=== PATIENT | female | born 1940 | race Caucasian/White ===

== ENCOUNTER 2018-05-15 05:10 | Inpatient (IN) ==
[2018-05-15] MEDS ORDERED: SODIUM CHLORIDE 0.9% 1,000 ML IV STA (05:17)
[2018-05-15] MEDS ORDERED: METOCLOPRAMIDE 10 MG/2 ML VIAL IV STA (05:22)
[2018-05-15] MEDS ORDERED: diphenhydrAMINE 50 MG/1 ML VIAL IV STA (05:22)
[2018-05-15 05:49] LABS: Basophils # 0.1 10*3/uL (0.0-0.2); Basophils % 0.3 % (0.0-0.8); Eosinophils % 0.1 % (0.00-10.9); Hematocrit 44.4 VOL% (35.7-47.0); Hemoglobin 14.3 GM/DL (12.0-16.0); Immature Granulocytes % 0.4 %; Immature Granulocytes Absolute 0.07 #; Lymphocytes # 1.5 10*3/uL (1.4-4.0); Lymphocytes % 8.3 % (21.3-54.2); Mean Corpuscular HGB Conc 32.2 GM/DL (32-36); Mean Corpuscular Hemoglobin 29 PG (27-34); Mean Corpuscular Volume 89.2 FL (87-102); Mean Platelet Volume 10.3 FL (9.6-12.0); Monocytes # 0.7 10*3/uL (0.11-0.8); Neutrophils # 15.9 10*3/uL (1.4-7.4); Neutrophils % 86.9 % (38.7-73.9); Platelet Count 228 T/CUMM (130-400); Red Blood Count 4.98 MC/CUMM (3.8-5.5); Red Cell Distribution Width 14.6 % (9.3-17.3); White Blood Count 18.3 T/CUMM (4-12)
[2018-05-15] MEDS ORDERED: PROMETHAZINE INJ 25 MG in SODIUM CHLORIDE 0.9% 50 ML IV STA (06:08)
[2018-05-15] MEDS ORDERED: PROMETHAZINE 25 MG/1 ML VIAL ONE (06:10)
[2018-05-15 06:19] LABS: Albumin 3.6 G/DL (3.4-5.0); Bilirubin,Total 0.4 MG/DL (0.2-1.0); Osmolality,Calculated 301.4 MOS/KG (273-304); Potassium 3.6 MMOL/L (3.5-5.1); Total Protein 7.1 G/DL (6.4-8.3)
[2018-05-15 09:06] LABS: Amorphous Crystals,Urine Occasional /HPF (Few); Apearance,Urine CLEAR (Clear); Bilirubin,Urine Negative (Negative); Blood, Urine Small mg/dL (Negative); Glucose,Urine (UA) >=500 mg/dL (Negative); Ketones,Urine 20 mg/dL (Negative); Mucus,Urine Occasional /LPF (Occasional); Nitrite,Urine Negative (Negative); Protein,Urine 30 MG/DL; RBC,Urine 2 /HPF (0-4); Squamous Epithelial Cell,Urine Occasional /HPF (0-10); Urine Color Yellow (Yellow); Urine Specific Gravity 1.023 (1.001-1.035); Urine Urobilinogen < 2.0 EU/DL (0.2-1.0); WBC,Urine 1 /HPF (0-6)
[2018-05-15] MEDS ORDERED: BENZOCAINE/BUTAMBEN/TETRACAINE SPRAY 20 GM CAN TOP ONE (09:55)
[2018-05-15] MEDS ORDERED: LACTATED RINGERS 1,000 ML IV ONE (10:05)
[2018-05-15] MEDS ORDERED: cefOXitin 2,000 MG in SYRINGE 1 EACH IV STA (10:05)
[2018-05-15] MEDS ORDERED: Aspirin/Sod Bicarb/Citric Acid [Alka-Seltzer Original Tab Eff] 1 PO PRN (10:53)
[2018-05-15] MEDS ORDERED: ONDANSETRON 4 MG/2 ML VIAL IV PRN (10:53)
[2018-05-15] MEDS ORDERED: PROMETHAZINE 25 MG/1 ML VIAL IM PRN (10:53)
[2018-05-15] MEDS ORDERED: ACETAMINOPHEN 325 MG TABLET PO PRN (10:53)
[2018-05-15] MEDS ORDERED: BISMUTH SUBSALICYLATE 30 ML/524 MG 240 ML/BOTTLE PO PRN (10:53)
[2018-05-15] MEDS: LACTATED RINGERS 1,000 ML IV SCH (15:17)
[2018-05-15] MEDS: cefOXitin 2,000 MG in SYRINGE 1 EACH IV SCH (17:34)
[2018-05-15] MEDS: ZOLPIDEM 5 MG TABLET PO SCH (21:54)
[2018-05-15] MEDS: ENOXAPARIN 40 MG/0.4 ML SYRINGE SUBCUT SCH (21:54)
[2018-05-16] MEDS: LACTATED RINGERS 1,000 ML IV SCH ×2 (00:44→10:15)
[2018-05-16] MEDS: cefOXitin 2,000 MG in SYRINGE 1 EACH IV SCH ×3 (02:44→18:10)
[2018-05-16 03:34] LABS: Basophils % 0.1 % (0.0-0.8); Eosinophils % 0.1 % (0.00-10.9); Hematocrit 40.2 VOL% (35.7-47.0); Hemoglobin 12.5 GM/DL (12.0-16.0); Immature Granulocytes % 0.5 %; Immature Granulocytes Absolute 0.08 #; Lymphocytes # 1.9 10*3/uL (1.4-4.0); Lymphocytes % 12.5 % (21.3-54.2); Mean Corpuscular HGB Conc 31.1 GM/DL (32-36); Mean Corpuscular Hemoglobin 28 PG (27-34); Mean Corpuscular Volume 91.4 FL (87-102); Mean Platelet Volume 11.3 FL (9.6-12.0); Monocytes # 1.1 10*3/uL (0.11-0.8); Monocytes % 7.4 % (1.7-12.7); Neutrophils # 12.2 10*3/uL (1.4-7.4); Neutrophils % 79.4 % (38.7-73.9); Platelet Count 185 T/CUMM (130-400); White Blood Count 15.3 T/CUMM (4-12)
[2018-05-16 04:05] LABS: Calcium 8.6 MG/DL (8.5-10.1); Potassium 3.5 MMOL/L (3.5-5.1)
[2018-05-16] MEDS ORDERED: ASPIRIN EC 81 MG TABLET PO SCH (09:00)
[2018-05-16] MEDS ORDERED: ROSUVASTATIN 20 MG TABLET PO SCH (09:00)
[2018-05-16] MEDS: METOPROLOL SUCCINATE XL 50 MG TABLET PO SCH (09:08)
[2018-05-16] MEDS: DEXT 5% NACL 0.2% KCL 20 MEQ 20 MEQ/1,000 ML BAG IV SCH ×2 (09:08→19:39)
[2018-05-16] MEDS: PANTOPRAZOLE 40 MG VIAL IV SCH (09:10)
[2018-05-16] MEDS: ASPIRIN EC 81 MG TABLET PO SCH (20:58)
[2018-05-16] MEDS: ZOLPIDEM 5 MG TABLET PO SCH (20:58)
[2018-05-16] MEDS: ROSUVASTATIN 20 MG TABLET PO SCH (20:58)
[2018-05-16] MEDS: ENOXAPARIN 40 MG/0.4 ML SYRINGE SUBCUT SCH (21:05)
[2018-05-17] MEDS: cefOXitin 2,000 MG in SYRINGE 1 EACH IV SCH ×3 (02:40→18:30)
[2018-05-17] MEDS: DEXT 5% NACL 0.2% KCL 20 MEQ 20 MEQ/1,000 ML BAG IV SCH ×4 (02:44→23:51)
[2018-05-17 06:19] LABS: Basophils # 0.1 10*3/uL (0.0-0.2); Basophils % 0.5 % (0.0-0.8); Eosinophils # 0.1 10*3/uL (0.0-0.87); Hematocrit 44.8 VOL% (35.7-47.0); Immature Granulocytes % 0.3 %; Immature Granulocytes Absolute 0.03 #; Lymphocytes # 2.7 10*3/uL (1.4-4.0); Mean Corpuscular HGB Conc 31.3 GM/DL (32-36); Mean Corpuscular Hemoglobin 29 PG (27-34); Mean Corpuscular Volume 91.2 FL (87-102); Mean Platelet Volume 11.4 FL (9.6-12.0); Monocytes # 0.9 10*3/uL (0.11-0.8); Neutrophils # 7.8 10*3/uL (1.4-7.4); Neutrophils % 67.2 % (38.7-73.9); Platelet Count 151 T/CUMM (130-400); Red Blood Count 4.91 MC/CUMM (3.8-5.5); Red Cell Distribution Width 15.1 % (9.3-17.3); White Blood Count 11.7 T/CUMM (4-12)
[2018-05-17 06:47] LABS: Calcium 8.3 MG/DL (8.5-10.1); Osmolality,Calculated 294.1 MOS/KG (273-304); Potassium 3.2 MMOL/L (3.5-5.1)
[2018-05-17] MEDS ORDERED: DIAZEPAM 5 MG TABLET PO ONE (07:36)
[2018-05-17] MEDS ORDERED: POTASSIUM CHLORIDE RIDER 10 MEQ in PREMIX 1 EACH IV PRN (09:04)
[2018-05-17] MEDS: PANTOPRAZOLE 40 MG VIAL IV SCH (09:59)
[2018-05-17] MEDS: METOPROLOL SUCCINATE XL 50 MG TABLET PO SCH (10:02)
[2018-05-17] MEDS ORDERED: TISSUE ADHESIVE 1 EACH APPLICATOR TOP ONE (13:58)
[2018-05-17] MEDS ORDERED: ONDANSETRON 4 MG/2 ML VIAL ONE ×2 (17:07→17:11)
[2018-05-17] MEDS ORDERED: PROPOFOL 200 MG/20 ML VIAL IV ONE (17:10)
[2018-05-17] MEDS ORDERED: fentaNYL 100 MCG/2 ML VIAL ONE (17:11)
[2018-05-17] MEDS ORDERED: DESFLURANE 1 UNIT/15 MINUTE INH ONE (17:11)
[2018-05-17] MEDS ORDERED: ETOMIDATE 40 MG/20 ML VIAL IV ONE (17:11)
[2018-05-17] MEDS ORDERED: PHENYLEPHRINE 10 MG/1 ML VIAL IV ONE (17:11)
[2018-05-17] MEDS ORDERED: LACTATED RINGERS 2,000 ML IV ONE (17:12)
[2018-05-17] MEDS ORDERED: NEOSTIGMINE 10 MG/10 ML VIAL ONE (17:12)
[2018-05-17] MEDS ORDERED: GLYCOPYRROLATE 0.4 MG/2 ML VIAL ONE (17:12)
[2018-05-17] MEDS ORDERED: SUCCINYLCHOLINE 200 MG/10 ML VIAL ONE (17:12)
[2018-05-17] MEDS ORDERED: ROCURONIUM 100 MG/10 ML VIAL IV ONE (17:12)
[2018-05-17] MEDS ORDERED: ACETAMINOPHEN 1,000 MG/100 ML VIAL IV ONE (17:12)
[2018-05-17] MEDS ORDERED: SODIUM CHLORIDE 0.9% 250 ML IV ONE (17:12)
[2018-05-17] MEDS ORDERED: PHENYLEPHRINE 1 MG/10 ML SYRINGE IV ONE (17:12)
[2018-05-17] MEDS ORDERED: MEPERIDINE 25 MG/1 ML VIAL IV PRN (17:21)
[2018-05-17] MEDS ORDERED: MEPERIDINE 25 MG/1 ML VIAL ONE (17:23)
[2018-05-17] MEDS: HYDROmorphone 2 MG/1 ML VIAL IV PRN (19:24)
[2018-05-17] MEDS: ZALEPLON 5 MG CAPSULE PO SCH (21:50)
[2018-05-17] MEDS: ENOXAPARIN 40 MG/0.4 ML SYRINGE SUBCUT SCH (21:51)
[2018-05-17] MEDS: ASPIRIN EC 81 MG TABLET PO SCH (21:51)
[2018-05-17] MEDS: ROSUVASTATIN 20 MG TABLET PO SCH (21:51)
[2018-05-18] MEDS ORDERED: LIDOCAINE 1%/EPI INJ 20 ML VIAL ONE ×2 (03:02→03:24)
[2018-05-18] MEDS ORDERED: PROPOFOL 200 MG/20 ML VIAL IV ONE (03:56)
[2018-05-18] MEDS ORDERED: PHENYLEPHRINE 1 MG/10 ML SYRINGE IV ONE (03:57)
[2018-05-18] MEDS ORDERED: ETOMIDATE 40 MG/20 ML VIAL IV ONE (03:57)
[2018-05-18] MEDS ORDERED: ONDANSETRON 4 MG/2 ML VIAL ONE ×2 (03:57→04:02)
[2018-05-18] MEDS ORDERED: MEPERIDINE 25 MG/1 ML VIAL ONE ×2 (04:02→04:38)
[2018-05-18] MEDS: MEPERIDINE 25 MG/1 ML VIAL IV PRN ×2 (04:05→04:40)
[2018-05-18] MEDS ORDERED: ONDANSETRON 4 MG/2 ML VIAL IV PRN (04:07)
[2018-05-18 05:56] LABS: Basophils % 0.2 % (0.0-0.8); Eosinophils # 0.1 10*3/uL (0.0-0.87); Eosinophils % 0.7 % (0.00-10.9); Hematocrit 43.8 VOL% (35.7-47.0); Hemoglobin 14.2 GM/DL (12.0-16.0); Immature Granulocytes % 0.4 %; Immature Granulocytes Absolute 0.04 #; Lymphocytes % 10.8 % (21.3-54.2); Mean Corpuscular HGB Conc 32.4 GM/DL (32-36); Mean Corpuscular Hemoglobin 29 PG (27-34); Mean Platelet Volume 10.7 FL (9.6-12.0); Monocytes # 0.8 10*3/uL (0.11-0.8); Monocytes % 8.6 % (1.7-12.7); Neutrophils # 7.7 10*3/uL (1.4-7.4); Neutrophils % 79.3 % (38.7-73.9); Platelet Count 182 T/CUMM (130-400); Red Blood Count 4.98 MC/CUMM (3.8-5.5); Red Cell Distribution Width 14.6 % (9.3-17.3); White Blood Count 9.7 T/CUMM (4-12)
[2018-05-18] MEDS: DEXT 5% NACL 0.2% KCL 20 MEQ 20 MEQ/1,000 ML BAG IV SCH ×3 (06:00→19:33)
[2018-05-18] MEDS: HYDROmorphone 2 MG/1 ML VIAL IV PRN ×3 (06:01→19:50)
[2018-05-18 06:10] LABS: Calcium 7.9 MG/DL (8.5-10.1); Osmolality,Calculated 280.3 MOS/KG (273-304)
[2018-05-18] MEDS: METOPROLOL SUCCINATE XL 50 MG TABLET PO SCH (10:36)
[2018-05-18] MEDS: PANTOPRAZOLE 40 MG VIAL IV SCH (10:40)
[2018-05-18] MEDS: ASPIRIN EC 81 MG TABLET PO SCH (21:10)
[2018-05-18] MEDS: ROSUVASTATIN 20 MG TABLET PO SCH (21:10)
[2018-05-18] MEDS: ZALEPLON 5 MG CAPSULE PO SCH (21:10)
[2018-05-18] MEDS: ENOXAPARIN 40 MG/0.4 ML SYRINGE SUBCUT SCH (21:11)
[2018-05-19] MEDS: DEXT 5% NACL 0.2% KCL 20 MEQ 20 MEQ/1,000 ML BAG IV SCH ×3 (03:50→19:36)
[2018-05-19 07:29] LABS: Calcium 8.2 MG/DL (8.5-10.1); Osmolality,Calculated 277.5 MOS/KG (273-304); Potassium 4.2 MMOL/L (3.5-5.1)
[2018-05-19 07:59] LABS: Basophils % 0.4 % (0.0-0.8); Eosinophils # 0.2 10*3/uL (0.0-0.87); Eosinophils % 1.7 % (0.00-10.9); Hematocrit 45.9 VOL% (35.7-47.0); Hemoglobin 14.4 GM/DL (12.0-16.0); Immature Granulocytes % 0.3 %; Immature Granulocytes Absolute 0.03 #; Lymphocytes # 1.2 10*3/uL (1.4-4.0); Lymphocytes % 10.7 % (21.3-54.2); Mean Corpuscular HGB Conc 31.4 GM/DL (32-36); Mean Corpuscular Hemoglobin 29 PG (27-34); Mean Corpuscular Volume 91.1 FL (87-102); Monocytes # 0.9 10*3/uL (0.11-0.8); Monocytes % 7.9 % (1.7-12.7); Neutrophils # 8.6 10*3/uL (1.4-7.4); Platelet Count 198 T/CUMM (130-400); Red Blood Count 5.04 MC/CUMM (3.8-5.5); Red Cell Distribution Width 14.7 % (9.3-17.3); White Blood Count 10.8 T/CUMM (4-12)
[2018-05-19] MEDS: METOPROLOL SUCCINATE XL 50 MG TABLET PO SCH (08:49)
[2018-05-19] MEDS: PANTOPRAZOLE 40 MG VIAL IV SCH (08:49)
[2018-05-19] MEDS: HYDROmorphone 2 MG/1 ML VIAL IV PRN (09:16)
[2018-05-19] MEDS: KETOROLAC 15 MG/1 ML VIAL IV PRN (19:50)
[2018-05-19] MEDS: ENOXAPARIN 40 MG/0.4 ML SYRINGE SUBCUT SCH (20:12)
[2018-05-19] MEDS: ASPIRIN EC 81 MG TABLET PO SCH (20:12)
[2018-05-19] MEDS: ROSUVASTATIN 20 MG TABLET PO SCH (20:12)
[2018-05-19] MEDS: ZALEPLON 5 MG CAPSULE PO SCH (20:12)
[2018-05-20] MEDS: DEXT 5% NACL 0.2% KCL 20 MEQ 20 MEQ/1,000 ML BAG IV SCH (03:06)
[2018-05-20] MEDS: KETOROLAC 15 MG/1 ML VIAL IV PRN (04:36)
[2018-05-20 06:10] LABS: Basophils % 0.3 % (0.0-0.8); Eosinophils # 0.3 10*3/uL (0.0-0.87); Eosinophils % 3.2 % (0.00-10.9); Hematocrit 41.1 VOL% (35.7-47.0); Hemoglobin 13.2 GM/DL (12.0-16.0); Immature Granulocytes % 0.3 %; Immature Granulocytes Absolute 0.03 #; Lymphocytes # 1.4 10*3/uL (1.4-4.0); Lymphocytes % 14.6 % (21.3-54.2); Mean Corpuscular HGB Conc 32.1 GM/DL (32-36); Mean Corpuscular Hemoglobin 29 PG (27-34); Mean Corpuscular Volume 89.9 FL (87-102); Mean Platelet Volume 10.8 FL (9.6-12.0); Monocytes % 9.9 % (1.7-12.7); Neutrophils # 7.1 10*3/uL (1.4-7.4); Neutrophils % 71.7 % (38.7-73.9); Platelet Count 183 T/CUMM (130-400); Red Blood Count 4.57 MC/CUMM (3.8-5.5); Red Cell Distribution Width 14.5 % (9.3-17.3); White Blood Count 9.8 T/CUMM (4-12)
[2018-05-20 06:36] LABS: Osmolality,Calculated 274.5 MOS/KG (273-304); Potassium 4.5 MMOL/L (3.5-5.1)
[2018-05-20] MEDS: METOPROLOL SUCCINATE XL 50 MG TABLET PO SCH (09:30)
[2018-05-20] MEDS: PANTOPRAZOLE 40 MG VIAL IV SCH (09:30)
[2018-05-20] MEDS: LOPERAMIDE 2 MG CAPSULE PO PRN ×3 (09:48→21:24)
[2018-05-20] MEDS: HYDROmorphone 2 MG/1 ML VIAL IV PRN (13:58)
[2018-05-20] MEDS: ZALEPLON 5 MG CAPSULE PO SCH (21:22)
[2018-05-20] MEDS: ENOXAPARIN 40 MG/0.4 ML SYRINGE SUBCUT SCH (21:22)
[2018-05-20] MEDS: ROSUVASTATIN 20 MG TABLET PO SCH (21:22)
[2018-05-20] MEDS: ASPIRIN EC 81 MG TABLET PO SCH (21:22)
[2018-05-21] MEDS: METOPROLOL SUCCINATE XL 50 MG TABLET PO SCH (08:57)
[2018-05-21] MEDS ORDERED: PANTOPRAZOLE 40 MG TABLET PO SCH (09:00)
[2018-05-21] MEDS: LOPERAMIDE 2 MG CAPSULE PO PRN (09:01)
[2018-05-21 10:23] VITALS: BP 158/57
== END 2018-05-21 10:20 | disposition home or self-care (01) | DRG 327 ==
LOC: EDBD → EDUNIT# → N.ED 05:10 → N.EDINP 10:06 → N.3E 10:45
PROVIDERS: ADMIT Surgery; ATTEND Surgery